=== PATIENT | female | born 1985 | race Caucasian/White ===

== ENCOUNTER 2019-09-18 18:29 | Emergency (ER) | payer OTHER ==
[~2019-09-18] VITALS: Ht 170.2 cm; Wt 68.0 kg
[2019-09-18 19:43] LABS: URINE BILIRUBIN NEGATIVE (Negative); URINE BLOOD NEGATIVE (Negative); URINE CLARITY CLEAR; URINE COLOR YELLOW; URINE GLUCOSE-RANDOM NEGATIVE (Negative); URINE KETONES NEGATIVE (Negative); URINE NITRITE-REFLEX NEGATIVE (Negative); URINE PROTEIN NEGATIVE (Negative); URINE SPECIFIC GRAVITY >= 1.030 (1.005-1.030); URINE UROBILINOGEN 0.2 E.U./dl (0.2-1.0)
[2019-09-18 19:44] LABS: URINE LEUKOCYTES-REFLEX 2+ (Negative)
[2019-09-18 19:51] LABS: BACTERIA-REFLEX >30 Many /HPF (None Seen); CASTS None Seen /LPF (None Seen); CRYSTALS None Seen /LPF (None Seen); SQUAMOUS 4-10 Moderate /LPF (0-3); URINE RBC 0-2 Rare /HPF (0-2)
[2019-09-18 20:00] VITALS: BP 149/90
== END 2019-09-18 20:00 | disposition home or self-care (01) ==
LOC: M.ERS 18:29
PROVIDERS: Physician Assistant
DX: N76.0 Acute vaginitis (principal); Z20.2 Contact with and (suspected) exposure to infections with a predominantly sexual mode of transmission

== ENCOUNTER 2019-11-11 21:14 | Emergency (ER) | payer OTHER ==
[~2019-11-11] VITALS: Ht 170.2 cm; Wt 99.8 kg
[2019-11-11 21:38] VITALS: BP 137/95
[2019-11-11] MEDS ORDERED: DOXYCYCLINE 10100 MG PO (23:22)
[2019-11-11] MEDS ORDERED: LORCET 5-325 M1 EACH PO (23:22)
[2019-11-11] MEDS ORDERED: FLAGYL500 M1 PO (23:22)
== END 2019-11-11 21:38 | disposition home or self-care (01) ==
LOC: M.ERS 21:14
DX: N89.8 Other specified noninflammatory disorders of vagina (principal)

== ENCOUNTER 2019-11-11 22:08 | Emergency (ER) | payer OTHER ==
[~2019-11-11] VITALS: Ht 170.2 cm; Wt 99.8 kg
[2019-11-11] MEDS ORDERED: FLAGYL500 M1 PO (23:22)
[2019-11-11] MEDS ORDERED: LORCET 5-325 M1 EACH PO (23:22)
[2019-11-11] MEDS ORDERED: DOXYCYCLINE 10100 MG PO (23:22)
[2019-11-11 23:45] VITALS: BP 137/95
[2019-11-11 23:47] LABS: URINE BILIRUBIN NEGATIVE (Negative); URINE BLOOD 3+ (Negative); URINE COLOR YELLOW; URINE GLUCOSE-RANDOM NEGATIVE (Negative); URINE KETONES NEGATIVE (Negative); URINE LEUKOCYTES-REFLEX 2+ (Negative); URINE NITRITE-REFLEX NEGATIVE (Negative); URINE PROTEIN 1+ (Negative); URINE SPECIFIC GRAVITY >= 1.030 (1.005-1.030); URINE UROBILINOGEN 0.2 E.U./dl (0.2-1.0)
[2019-11-11 23:48] LABS: URINE CLARITY SL CLOUDY
[2019-11-12 00:11] LABS: BACTERIA-REFLEX >30 Many /HPF (None Seen); CASTS None Seen /LPF (None Seen); CRYSTALS None Seen /LPF (None Seen); MUCUS 4-6 Moderate strn/LPF (None Seen); SQUAMOUS 0-3 Few /LPF (0-3); URINE RBC >20 Many /HPF (0-2); URINE WBC-REFLEX >25 Many /HPF (0-5); WBC CLUMPS Moderate (None Seen)
== END 2019-11-11 23:45 | disposition home or self-care (01) ==
LOC: M.ERS 22:08
PROVIDERS: Emergency Medicine
DX: A59.9 Trichomoniasis, unspecified (principal); F41.9 Anxiety disorder, unspecified